=== PATIENT | female | born 1965 ===

== ENCOUNTER 2017-12-23 13:41 | Emergency (ER) | payer BC ==
[2017-12-23 13:45] VITALS: PULSE 77; RESP 16; TEMP 98.1; O2SAT 99
--- NOTE | 2017-12-23 13:56 | ED PDOC ---
HPI: General Adult Time Seen by Provider: 12/23/17 13:55 Chief Complaint (Nursing): Trauma Chief Complaint (Provider): fall History Per: Patient, Family (Patient's and son at bedside are translating for patient in Mohawk) Additional Complaint(s): 52-year-old female presents to emergency department with right knee pain, low back pain and headache status post accidental fall. Patient slipped and fell while mopping. She denies dizziness or syncope prior to fall. Patient called an ambulance and was brought to ED. PMD: Dr. Axel Mensah Past Medical History Reviewed: Historical Data, Nursing Documentation, Vital Signs Vital Signs: Last Vital Signs Temp 98.1 F 12/23/17 13:43 Pulse 77 12/23/17 13:43 Resp 16 12/23/17 13:43 BP 136/71 12/23/17 15:44 Pulse Ox 99 12/23/17 15:32 - Medical History PMH: HTN - Surgical History Other surgeries: bilateral foot surgery - Family History Family History: States: No Known Family Hx - Living Arrangements Living Arrangements: With Family - Social History Current smoker - smoking cessation education provided: No Alcohol: None Drugs: Denies - Home Medications Home Medications: Ambulatory Orders Medication Instructions Recorded Tramadol HCl/Acetaminophen 1 each PO Q6 #15 tablet 12/23/17 [Ultracet Tablet] - Allergies Allergies/Adverse Reactions: Allergies Allergy/AdvReac Type Severity Reaction Status Date / Time cat dander Allergy ITCHING Verified 12/23/17 13:43 Review of Systems ROS Statement: Except As Marked, All Systems Reviewed And Found Negative Musculoskeletal: Positive for: Other (right knee pain, low back pain s/p fall) Neurological: Positive for: Other (head injury with no LOC) Physical Exam - Reviewed Nursing Documentation Reviewed: Yes Vital Signs Reviewed: Yes - Physical Exam Appears: Positive for: Well, Non-toxic, No Acute Distress Head Exam: Positive for: ATRAUMATIC Skin: Negative for: Rash Eye Exam: Positive for: Normal appearance, EOMI, PERRL Neck: Positive for: Normal, Painless ROM Cardiovascular/Chest: Positive for: Regular Rate, Rhythm Respiratory: Positive for: Normal Breath Sounds Gastrointestinal/Abdominal: Positive for: Other (morbidly obese non-tender abdomen) Back: Positive for: Vertebral Tenderness (lumbar) Extremity: Positive for: Other (Tenderness and swelling to right knee with decreased range of motion) Neurologic/Psych: Positive for: Alert, Oriented - ECG O2 Sat by Pulse Oximetry: 99 Pulse Ox Interpretation: Normal - Other Rad CT head X-Ray: Read By Radiologist X-Ray Interpretation: no acute finding X-ray right knee X-Ray: Interpreted by Me, Viewed By Me X-Ray Interpretation: no fx, no dis X-ray L/S Spine X-Ray: Interpreted by Me, Viewed By Me X-Ray Interpretation: no fx, no dis Medical Decision Making Medical Decision Makin52 year old with headache, right knee pain and low back pain s/p slip and fall Plan: PO tylenol CT head Right knee x-ray LS Spine X-ray Patient and family members at bedside are aware of diagnostic testing results, all questions answered. Patient has a cane at home, crutches declined. Patient given prescription for Ultracet, referral for orthopedist provided. Zhou wrap applied to right knee. Procedures - Splinting Location: right knee Pre-Made Type: zhou wrap Pre-Proc Neuro Vasc Exam: normal Post-Proc Neuro Vasc Exam: normal Disposition - Clinical Impression Clinical Impression: Knee sprain, Back strain, Head injury - Patient ED Disposition Is Patient to be Admitted: No Counseled Patient/Family Regarding: Studies Performed, Diagnosis, Need For Followup, Rx Given - Disposition Referrals: Victor M Benoit III, MD [Staff Provider] - Axel Mensah MD [Family Provider] - Disposition: Routine/Home Disposition Time: 17:22 Condition: STABLE Additional Instructions: Ice and elevate affected area. Take prescription as directed as needed for pain. Follow-up with orthopedist or primary doctor for any persistent symptoms. Prescriptions: Tramadol HCl/Acetaminophen [Ultracet Tablet] 1 each PO Q6 #15 tablet Instructions: Low Back Pain in Adults, Closed Head Injury, Muscle Strain (DC), Knee Sprain (DC) Forms: [employer] (Mohawk) Print Language: LIBYAN
--- NOTE | 2017-12-23 15:05 | CT ---
PROCEDURE: CT HEAD WITHOUT CONTRAST. HISTORY: Trauma COMPARISON: None available. TECHNIQUE: Axial computed tomography images were obtained through the head/brain without intravenous contrast. Radiation dose: Total exam DLP = 868.00 mGy-cm. This CT exam was performed using one or more of the following dose reduction techniques: Automated exposure control, adjustment of the mA and/or kV according to patient size, and/or use of iterative reconstruction technique. FINDINGS: HEMORRHAGE: No intracranial hemorrhage. BRAIN: Hagan-white matter differentiation is preserved. There is no mass, mass effect or abnormal extra-axial fluid collection. There is no territorial infarction. VENTRICLES: The ventricles are normal in size, shape and configuration. CALVARIUM: There is no calvarial fracture. There is left parietal soft tissue swelling. PARANASAL SINUSES: Predominantly clear. MASTOID AIR CELLS: Predominantly clear. OTHER FINDINGS: None. IMPRESSION: No acute intracranial abnormality.
[2017-12-23 15:44] VITALS: BP 136/71
--- NOTE | 2017-12-23 17:42 | RAD ---
PROCEDURE: Radiographs of the Lumbar Spine. HISTORY: trauma COMPARISON: No prior. FINDINGS: BONES: Normal alignment. No listhesis. No fracture. DISC SPACES: Unremarkable. OTHER FINDINGS: None. IMPRESSION: No evidence of acute fracture or subluxation. Mild degenerative changes.
--- NOTE | 2017-12-23 17:45 | RAD ---
PROCEDURE: Right Knee Radiographs. HISTORY: trauma COMPARISON: None. FINDINGS: BONES: Low position of the patella. The possibility of quadriceps tendon injury should be excluded. Possible small joint effusion. JOINTS: Normal. No osteoarthritis. JOINT EFFUSION: None. OTHER FINDINGS: None. IMPRESSION: No evidence of acute fracture. Low position of the patella. If clinically warranted further assessment by MRI may be obtained to exclude quadriceps tendon or patellar tendon injury.
== END 2017-12-23 17:55 | disposition home or self-care (01) ==
LOC: H.ER 13:41
DX: S09.90XA Unspecified injury of head, initial encounter (principal); S39.012A Strain of muscle, fascia and tendon of lower back, initial encounter; S83.91XA Sprain of unspecified site of right knee, initial encounter; W01.0XXA Fall on same level from slipping, tripping and stumbling without subsequent striking against object, initial encounter; Y92.89 Other specified places as the place of occurrence of the external cause; I10 Essential (primary) hypertension